=== PATIENT | female | born 1980 | race Caucasian/White ===

== ENCOUNTER 2016-11-28 13:32 | Emergency (ER) | payer BC, OTHER ==
[~2016-11-28] VITALS: Ht 170.2 cm; Wt 99.8 kg
[2016-11-28] MEDS ORDERED: VIIBRYD40 MG PO (13:45)
[2016-11-28 15:20] VITALS: BP 113/77
== END 2016-11-28 15:20 | disposition home or self-care (01) ==
LOC: ER 13:32
DX: G89.18 Other acute postprocedural pain (principal); M79.89 Other specified soft tissue disorders; F17.210 Nicotine dependence, cigarettes, uncomplicated; F10.99 Alcohol use, unspecified with unspecified alcohol-induced disorder